=== PATIENT | female | born 1970 | race Caucasian/White ===

== ENCOUNTER 2016-07-29 21:55 | Emergency (ER) | payer BC, OTHER ==
[2016-07-29] MEDS ORDERED: ASPIRIN 81 MG CHEWABLE TABLET PO ONE (22:08)
[2016-07-29] MEDS: NITROGLYCERIN 0.4MG SL TABLET #25 BTL SL PRN ×3 (22:12→22:22)
[2016-07-29 22:15] LABS: BASO % 0.4 % (0-6); EOS % 2.1 % (0-6); GRAN % 49.6 % (47-80); HEMATOCRIT 42.2 % (35.0-47.0); HEMOGLOBIN 14.2 gm/dl (11.6-16.0); LYMPH % 39.8 % (16-45); MEAN CELL VOLUME 87.2 fl (81-97); MEAN CORPUSCULAR HEMOGLOBIN 29.3 pg (27-33); MEAN CORPUSCULAR HGB CONC 33.6 g/dl (32-36); MEAN PLATELET VOLUME 9.8 fl (7.4-10.4); MONO % 8.1 % (0-9); PLATELET COUNT 274 K/uL (130-400); RED BLOOD COUNT 4.84 M/uL (3.80-5.40); RED CELL DISTRIBUTION WIDTH 12.4 % (11.5-14.5); WHITE BLOOD COUNT W/O DIFF 8.1 K/uL (4.2-12.2)
[2016-07-29 22:26] LABS: ALB/GLOB RATIO 1.6 (1.1-1.8); ALBUMIN 4.7 gm/dL (3.5-5.0); ALKALINE PHOSPHATASE 100 U/L (38-126); ALT/SGPT 25 U/L (9-52); ANION GAP 5.1 (7-16); AST/SGOT 20 U/L (14-36); BILIRUBIN,TOTAL 0.44 mg/dL (0.2-1.3); BLOOD UREA NITROGEN 15 mg/dL (7-17); CARBON DIOXIDE 33.9 mmol/L (22-30); CREATINE PHOSPHOKINASE 62 U/L (30-135); CREATININE 0.8 mg/dL (0.52-1.04); EST GLOMERULAR FILTRATION RATE > 60 ml/min; GLUCOSE,RANDOM 69 mg/dL (70-110); TOTAL PROTEIN 7.7 gm/dL (6.3-8.2)
[2016-07-29 22:38] LABS: CKMB 0.7 ug/L (0-6); TROPONIN I < 0.012 ng/mL (0.00-0.034)
[2016-07-29] MEDS ORDERED: MORPHINE SULFATE 5 MG/ML PFS IVP ONE ×2 (23:16→23:44)
--- NOTE | 2016-07-29 23:16 | Emergency Department Record ---
History of Present Illness - General Chief Complaint: Chest Pain Stated Complaint: CHEST PAIN Time Seen by Provider: 07/29/16 22:01 Mode of Arrival: Ambulatory - History of Present Illness Onset/Timin -: Hour(s) Onset: During rest Pain Location: Right chest Worsens With: Exertion, Inspiration - Related Data Home Medications Medication Instructions Recorded Confirmed Last Taken Duloxetine HCl [Cymbalta] 60 mg PO QAM 02/04/16 07/29/16 02/03/16 Metoprolol Tartrate 25 mg PO DAILY 02/04/16 07/29/16 02/03/16 Ropinirole HCl [Requip] 0.5 mg PO DAILY 02/04/16 07/29/16 02/04/16 Trazodone HCl [Desyrel] 50 mg PO QHS 02/04/16 07/29/16 02/03/16 Duloxetine HCl [Cymbalta] 30 mg PO QPM 07/29/16 07/29/16 Unknown Metoprolol Succinate [Toprol Xl] 25 mg PO DAILY 07/29/16 07/29/16 Unknown Allergies Allergy/AdvReac Type Severity Reaction Status Date / Time Sulfa (Sulfonamide AdvReac NAUSEA Verified 02/04/16 08:44 Antibiotics) Travel Screening - Travel/Exposure Within Last 30 Days Have you traveled within the last 30 days?: No Past Medical History - SOCIAL HISTORY Smoking Status: Never smoker Alcohol Use: None Drug Use: None - RESPIRATORY Hx Respiratory Disorders: No - CARDIOVASCULAR Hx Cardio Disorders: Yes Hx Hypertension: Yes - NEURO Hx Neuro Disorders: No - GI Hx GI Disorders: No - Hx Genitourinary Disorders: No - ENDOCRINE Hx Endocrine Disorders: No - MUSCULOSKELETAL Hx Musculoskeletal Disorders: No - PSYCH Hx Psych Problems: Yes Hx Anxiety: Yes Hx Depression: Yes - HEMATOLOGY/ONCOLOGY Hx Hematology/Oncology Disorders: No Family Medical History Any Significant Family History?: No Course Vital Signs 07/29/16 07/29/16 07/29/16 21:58 22:13 22:22 Temperature 97.6 F Pulse Rate 69 Pulse Rate [ 68 68 [employer] ] Respiratory 18 18 18 Rate Blood Pressure 169/100 Blood Pressure 154/91 117/82 [Right Arm] Pulse Ox 100 100 99 07/29/16 22:27 Temperature Pulse Rate Pulse Rate [ 65 [employer] ] Respiratory 18 Rate Blood Pressure Blood Pressure 120/77 [Right Arm] Pulse Ox 98 - Reevaluation(s) Reevaluation #1: 07/30/16 02:32 pt resting and doing much better. Medical Decision Making - Lab Data Result diagrams: 07/29/16 22:01 07/29/16 22:01 Lab Results 07/29/16 07/29/16 07/29/16 Range/Units 22:01 22:01 22:01 WBC 8.1 (4.2-12.2) K/uL RBC 4.84 (3.80-5.40) M/uL Hgb 14.2 (11.6-16.0) gm/dl Hct 42.2 (35.0-47.0) % MCV 87.2 (81-97) fl MCH 29.3 (27-33) pg MCHC 33.6 (32-36) g/dl RDW 12.4 (11.5-14.5) % Plt Count 274 (130-400) K/uL MPV 9.8 (7.4-10.4) fl Gran % 49.6 (47-80) % Lymphocytes % 39.8 (16-45) % Monocytes % 8.1 (0-9) % Eosinophils % 2.1 (0-6) % Basophils % 0.4 (0-6) % D-Dimer < 0.19 (0-0.59) mg/L FEU Sodium 140 (136-145) mmol/L Potassium 3.6 (3.5-5.1) mmol/L Chloride 101 (98-107) mmol/L Carbon Dioxide 33.9 H (22-30) mmol/L Anion Gap 5.1 L (7-16) BUN 15 (7-17) mg/dL Creatinine 0.8 (0.52-1.04) mg/dL Estimated GFR > 60 ml/min Random Glucose 69 L (70-110) mg/dL Calcium 9.7 (8.5-10.1) mg/dL Total Bilirubin 0.44 (0.2-1.3) mg/dL AST 20 (14-36) U/L ALT 25 (9-52) U/L Alkaline Phosphatase 100 (38-126) U/L Creatine Kinase 62 (30-135) U/L CK-MB (CK-2) 0.7 (0-6) ug/L Myoglobin 35.5 (0.0-61.5) ng/mL Troponin I < 0.012 (0.00-0.034) ng/mL Total Protein 7.7 (6.3-8.2) gm/dL Albumin 4.7 (3.5-5.0) gm/dL Globulin 3.0 (1.4-4.8) gm/dL Albumin/Globulin Ratio 1.6 (1.1-1.8) Disposition Disposition: Discharge Clinical Impression: Chest pain Qualifiers: Chest pain type: unspecified Qualified Code(s): R07.9 - Chest pain, unspecified Disposition: Home, Self-Care Condition: (1) Good Instructions: Chest Pain (ED) Additional Instructions: follow upwith family doctor for further evaluation. return sooner if worse Forms: Patient Portal Access
[2016-07-29] MEDS ORDERED: KETOROLAC 30 MG/ML VIAL IVP ONE (23:35)
--- NOTE | 2016-07-31 14:14 | RADIOLOGY REPORT ---
EXAM: CHEST, TWO VIEWS HISTORY: PATIENT HAS RIGHT SIDED CHEST PAIN THAT RADIATES TO THE RIGHT SHOULDER. TECHNIQUE: Two views of the chest were provided along with the comparison CT scan of the abdomen and pelvis dated 02/04/16. FINDINGS: The cardiomediastinal silhouette is within normal limits for size and contour. The jose appear unremarkable. There is no radiographic evidence of a focal infiltrate, pleural effusion, or pneumothorax. IMPRESSION: NO RADIOGRAPHIC EVIDENCE OF AN ACUTE INTRATHORACIC PROCESS. JOB NUMBER: [id number] [facility]
== END 2016-07-30 02:44 | disposition home or self-care (01) ==
LOC: ER 21:55
DX: R07.9 Chest pain, unspecified (principal); I10 Essential (primary) hypertension
CPT/HCPCS: 99284 ×2; 96374; 96375; 82550; 85025; 83874; 82553; 84484; 80053; 85379; 71020; 93005; 93010; J1885; J2270